=== PATIENT | female | born 1970 | race Caucasian/White ===

== ENCOUNTER 2016-06-22 10:59 | Emergency (ER) | payer SELFPAY ==
[2016-06-22 11:39] LABS: HEMOGLOBIN 12.1 gm/dl (12.3-15.3); RED BLOOD COUNT 4.4 M/UL (4.00-5.10); WHITE BLOOD COUNT 9.4 K/UL (4.5-11.0)
[2016-06-22 12:03] LABS: BUN/CREATININE RATIO 23 (0-10)
== END 2016-06-22 13:55 | disposition home or self-care (01) ==
LOC: ER1 10:59
PROVIDERS: Physician Assistant
DX: N39.0 Urinary tract infection, site not specified (principal); F17.200 Nicotine dependence, unspecified, uncomplicated; Z88.0 Allergy status to penicillin
CPT/HCPCS: 36415; 80053; 81001; 85025; 96374; 96375; 99284; J0696; J1885; J2270; J2405

== ENCOUNTER → 2016-08-16 | Outpatient (CLI) | payer OTHER | LOC: KOH-I 10:17 | DX: S90.02XA Contusion of left ankle, initial encounter (principal); M25.522 Pain in left elbow; M79.89 Other specified soft tissue disorders | CPT/HCPCS: 73080; 73610 ==

== ENCOUNTER → 2016-08-31 | Outpatient (CLI) | payer OTHER | LOC: KOH-I 10:30 | DX: M25.522 Pain in left elbow (principal); M79.89 Other specified soft tissue disorders | CPT/HCPCS: 73080 ==

== ENCOUNTER → 2020-12-30 | Outpatient (CLI) | payer BC | LOC: RAD 12:15 | DX: M54.2 Cervicalgia (principal); M54.5 Low back pain; M47.812 Spondylosis without myelopathy or radiculopathy, cervical region; M47.816 Spondylosis without myelopathy or radiculopathy, lumbar region | CPT/HCPCS: 72050; 72110 ==

== ENCOUNTER 2021-05-03 11:01 | Emergency (ER) | payer BC | END 2021-05-03 14:00 | disposition home or self-care (01) | LOC: ER1 11:01 | DX: M79.662 Pain in left lower leg (principal); E11.9 Type 2 diabetes mellitus without complications; F17.200 Nicotine dependence, unspecified, uncomplicated | CPT/HCPCS: 93971; 96372; 99283; J1885 ==